=== PATIENT | female | born 1985 | race Caucasian/White ===

== ENCOUNTER 2018-02-08 22:16 | Emergency (ER) | payer BC ==
[~2018-02-08] VITALS: Ht 165.1 cm; Wt 70.8 kg
[~2018-02-08 22:16] MED LIST: ACET325; AMOCLA875 PO; AMOX500 PO; BC PILLS; CEFD300 PO; CLIN300 PO; ESOM20 PO; FAMO20 PO; HYDACE5 PO; IBUP800 PO; IUD BIRTH CONTROL PO; KETO10 PO; LEVSOD125 PO; LORA10 PO; METR500 PO; MULVITMINE PO; NAPR500 PO; OMEP20ER PO; ONDA4ODT MM; OXYACE5T PO; PANT20 PO; PANT40 PO; PENVK500 PO; PHENA100 PO; PROC5 PO; PROM25 PO; PSEU30 PO; RANI150 PO; RXOXYACE PO; RXSULTRIDS PO; SUCR1 PO; SULTRIDS PO; TRAM50 PO; [UNRECOGNIZED DRUG - OTHER] PO
[2018-02-08] MEDS ORDERED: FLONASE ALLERG9.9 ML INH (22:42)
[2018-02-09] MEDS ORDERED: IBUP600 PO (00:09)
== END 2018-02-09 00:30 | disposition home or self-care (01) ==
LOC: ER 22:16
DX: M54.41 Lumbago with sciatica, right side (principal); M54.42 Lumbago with sciatica, left side; Z91.040 Latex allergy status; Z88.8 Allergy status to other drugs, medicaments and biological substances; Z88.5 Allergy status to narcotic agent; Z79.899 Other long term (current) drug therapy; K21.9 Gastro-esophageal reflux disease without esophagitis; G43.909 Migraine, unspecified, not intractable, without status migrainosus; E03.9 Hypothyroidism, unspecified; F17.210 Nicotine dependence, cigarettes, uncomplicated
CPT/HCPCS: J1100; J1885

== ENCOUNTER 2018-02-20 12:19 | Emergency (ER) | payer BC ==
[~2018-02-20] VITALS: Ht 165.1 cm; Wt 70.3 kg
[~2018-02-20 12:19] MED LIST changes: +FLONASE ALLERG9.9 ML INH; +IBUP600 PO
[2018-02-20] MEDS ORDERED: Norco 5-325 Ta1 EACH PO (14:57)
[2018-02-20] MEDS ORDERED: Zofran Odt4 MG SL (14:57)
== END 2018-02-20 15:02 | disposition home or self-care (01) ==
LOC: ER 12:19
DX: M54.41 Lumbago with sciatica, right side (principal); K21.9 Gastro-esophageal reflux disease without esophagitis; E03.9 Hypothyroidism, unspecified; F17.210 Nicotine dependence, cigarettes, uncomplicated; Z91.09 Other allergy status, other than to drugs and biological substances; Z91.040 Latex allergy status; Z88.5 Allergy status to narcotic agent; Z88.8 Allergy status to other drugs, medicaments and biological substances; Z79.899 Other long term (current) drug therapy; Z87.11 Personal history of peptic ulcer disease
CPT/HCPCS: 99283

== ENCOUNTER 2018-06-21 00:17 | Emergency (ER) | payer MEDICAID ==
[~2018-06-21] VITALS: Ht 165.1 cm; Wt 72.6 kg
[~2018-06-21 00:17] MED LIST changes: +Norco 5-325 Ta1 EACH PO; +Zofran Odt4 MG SL
[2018-06-21] MEDS ORDERED: CYCL10 PO (00:25)
[2018-06-21] MEDS ORDERED: TRAM50 PO (00:26)
[2018-06-21] MEDS ORDERED: Prednisone20 MG PO (01:28)
== END 2018-06-21 02:15 | disposition home or self-care (01) ==
LOC: ER 00:17
DX: M54.31 Sciatica, right side (principal); K21.9 Gastro-esophageal reflux disease without esophagitis; E03.9 Hypothyroidism, unspecified; F17.210 Nicotine dependence, cigarettes, uncomplicated; Z91.09 Other allergy status, other than to drugs and biological substances; Z91.040 Latex allergy status; Z88.8 Allergy status to other drugs, medicaments and biological substances; Z79.899 Other long term (current) drug therapy
CPT/HCPCS: 96372; 99283; J1885

== ENCOUNTER 2022-01-19 19:56 | Emergency (ER) | payer OTHER ==
[~2022-01-19] VITALS: Ht 165.1 cm; Wt 77.1 kg
[~2022-01-19 19:56] MED LIST changes: +CYCL10 PO; +Prednisone20 MG PO
[2022-01-19] MEDS ORDERED: CYCLOBENZAPRINE5 MG PO (21:32)
== END 2022-01-19 21:57 | disposition home or self-care (01) ==
LOC: ER 19:56
DX: S39.012A Strain of muscle, fascia and tendon of lower back, initial encounter (principal); S46.912A Strain of unspecified muscle, fascia and tendon at shoulder and upper arm level, left arm, initial encounter; S29.012A Strain of muscle and tendon of back wall of thorax, initial encounter; V43.52XA Car driver injured in collision with other type car in traffic accident, initial encounter; F17.210 Nicotine dependence, cigarettes, uncomplicated; Z88.5 Allergy status to narcotic agent; Z88.8 Allergy status to other drugs, medicaments and biological substances; Z91.040 Latex allergy status; Z79.899 Other long term (current) drug therapy
CPT/HCPCS: 72070; 72100; 73030

== ENCOUNTER → 2022-10-13 | Outpatient (CLI) | payer OTHER ==
[~2022-10-13] MED LIST changes: +CYCLOBENZAPRINE5 MG PO
[2022-10-13 16:40] LABS: Free Thyroxine 0.84 ng/dL (0.70-1.60)
[2022-10-13 16:43] LABS: Thyroid Stimulating Hormone 4.29 uIU/mL (0.360-4.800); Triiodothyronine, Free 2.07 pg/mL (2.18-3.98)
[2022-10-15 06:11] LABS: HCV AB <0.1 (0.0-0.9)
== END | disposition home or self-care (01) ==
LOC: LAB SHORT 09:40
PROVIDERS: Family Medicine
DX: Z11.59 Encounter for screening for other viral diseases (principal); E03.9 Hypothyroidism, unspecified
CPT/HCPCS: 36415; 84439; 84443; 84481; 86803